=== PATIENT | female | born 2000 | race Caucasian/White ===

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

== ENCOUNTER 2018-02-08 13:15 | Emergency (ER) | payer OTHER ==
[2018-02-08] MEDS ORDERED: Albuterol/Ipratropium NEB.SOL* Albuterol 2.5 MG/Ipratropium 0.5 MG 3 ML INH ONE (13:25)
[2018-02-08 13:31] VITALS: BP 132/87
--- NOTE | 2018-02-08 13:45 | UC ---
Shortness of Breath HPI - HPI Summary HPI Summary: Patient is a 17-year-old female with a history of anxiety presenting to the with shortness of breath 2 days. The shortness of breath was acute onset, has been intermittent and is lasted for 2 days. Symptoms are aggravated with nothing and alleviated with nothing. Symptoms spontaneously resolved and returned several hours later. This has been constant over 2 days. Currently on Depo-Provera, denies any travel, denies any calf pain, denies smoking history. Denies any history of DVT or PE. She is not on blood thinners. She appears very anxious on arrival. She states she has panic attacks but never caused her to have shortness of breath. She endorses some bilateral lower rib pain, which is not worse with inspiration. Denies any back pain. She denies any drug use or alcohol use. She has not been sick recently with URI, however she endorses a mild cough without production. Denies any fevers, sweats, chills. - History of Current Complaint Chief Complaint: UCRespiratory Stated Complaint: TROUBLE BREATHING Time Seen by Provider: 02/08/18 13:19 Hx Obtained From: Patient Hx Last Menstrual Period: 11/29/17 ?: No Onset/Duration: Sudden Onset Timing: Constant Current Severity: None Dyspnea At: Rest Aggrevating Factors: Nothing Alleviating Factors: Nothing Associated Signs & Symptoms: Positive: Cough (Nonproductive). Negative: Wheezing, Nasal Congestion, Dizzy, Calf Pain/Swelling - Risk Factors Pulmonary Embolism: Oral Contraceptives Cardiac: Negative Pseudomonas: Negative Tuberculosis: Negative - Allergy/Home Medications Allergies/Adverse Reactions: Allergies Allergy/AdvReac Type Severity Reaction Status Date / Time No Known Allergies Allergy Verified 02/08/18 13:25 PMH/Surg Hx/FS Hx/Imm Hx Previously Healthy: Yes - Surgical History Surgical History: Yes Surgery Procedure, Year, and Place: adenoids - Family History Known Family History: Positive: Hypertension, Other - maternal grandmother colon & ovarian cancer. Mother uterine fibroid. Negative: Diabetes - Social History Occupation: Unemployed, Student Lives: With Family Alcohol Use: None Substance Use Type: Marijuana Substance Use Comment - Amount & Last Used: 2 x weekly Smoking Status (MU): Never Smoked Tobacco - Immunization History Most Recent Influenza Vaccination: Not UTD Vaccination Up to Date: Yes Review of Systems Constitutional: Negative Skin: Negative Respiratory: Shortness Of Breath, Cough Cardiovascular: Negative Neurovascular: Negative Musculoskeletal: Negative Neurological: Negative Psychological: Anxious Is Patient Immunocompromised?: No All Other Systems Reviewed And Are Negative: Yes Physical Exam Triage Information Reviewed: Yes Appearance: Well-Appearing, No Pain Distress, Well-Nourished Vital Signs: Initial Vital Signs Temp 98.2 F 02/08/18 13:18 Pulse 112 02/08/18 13:18 Resp 18 02/08/18 13:18 BP 132/87 02/08/18 13:18 Pulse Ox 97 02/08/18 13:18 Vital Signs Reviewed: Yes Eye Exam: Normal Respiratory Exam: Normal Respiratory: Positive: Chest non-tender, Lungs clear. Negative: Wheezing, Expiration, Inspiration Cardiovascular Exam: Normal Cardiovascular: Positive: RRR Musculoskeletal Exam: Normal Musculoskeletal: Positive: Strength Intact Neurological Exam: Normal Neurological: Positive: Alert Psychological: Positive: Normal Response To Family Skin Exam: Normal Shortness of Breath Dx - Course Course Of Treatment: Patient is evaluated for shortness of breath. Symptoms have been present 2 days, are aggravated by nothing and alleviated with nothing. She states they spontaneously resolve on their own. She endorses Depo -Provera as control, denies smoking, denies travel, denies any calf pain. She appears extremely anxious on arrival and is tachy at 112. On arrival she is given a DuoNeb. Lungs are CTA, RRR. I am unable to rule out a PE or other pathology while in the . She will be sent to the ED for further evaluation. Discussed with DELIA Kimball at 1:30 PM. Patient is refusing ambulance and will then go by private car. - Differential Dx/Diagnosis Differential Diagnosis/HQI/PQRI: Bronchitis, Chest Wall Pain, Pulmonary Embolism , Other - anxiety Provider Diagnoses: Shortness of breath Discharge - Sign-Out/Discharge Documenting (check all that apply): Discharge/Admit/Transfer - Discharge Plan Condition: Stable Disposition: HOME Patient Education Materials: Shortness of Breath (ED) Referrals: Davidson Patel MD [Primary Care Provider] - Additional Instructions: Go directly to the ED - Billing Disposition and Condition Condition: STABLE Disposition: HOME
== END 2018-02-08 13:49 | disposition home or self-care (01) ==
LOC: UCEAST 13:15
DX: R06.02 Shortness of breath (principal); R05 Cough; F41.0 Panic disorder [episodic paroxysmal anxiety]; R07.81 Pleurodynia
CPT/HCPCS: 99212; A9270-GY; G0463

== ENCOUNTER 2018-02-08 14:04 | Emergency (ER) | payer OTHER ==
[2018-02-08 15:22] LABS: ABS Basophils 0 10^3/ul (0-0.2); ABS Eosinophils 0.1 10^3/ul (0-0.6); ABS Lymphocytes 1.9 10^3/ul (1.0-4.8); ABS Monocytes 0.7 10^3/ul (0-0.8); ABS Neutrophils 3.4 10^3/ul (1.5-7.7); ABS Nucleated RBC 0 10^3/ul; Eosinophil % 1.6 % (0-6); Hematocrit 39 % (35-47); Hemoglobin 13.1 g/dl (12.0-16.0); Lymphocyte % 30.7 % (25-47); Mean Corpuscular HGB Conc 34 g/dl (31-36); Mean Corpuscular Hemoglobin 27 pg (27-31); Mean Corpuscular Volume 80 fL (80-97); Nucleated Red Blood Cells % 0.1; Platelet Count 231 10^3/ul (150-450); Red Blood Count 4.81 10^6/ul (4.0-5.4); Red Cell Distribution Width 14 % (10.5-15)
--- NOTE | 2018-02-08 15:38 | RAD ---
Indication: Shortness of breath. 2 views of the chest including dual energy PA views demonstrates no mediastinal shift. Heart is of normal size and configuration. Lung gilbert are clear. Overall no changes noted since August 13, 2016. IMPRESSION: No active cardiopulmonary disease is noted.
[2018-02-08 15:59] LABS: EGFR Non-African American 102.7 (>60)
[2018-02-08 16:49] VITALS: BP 105/88
[2018-02-08] MEDS ORDERED: Albuterol HFA INHALER* 8 gm MDI INH ONE (17:09)
--- NOTE | 2018-02-08 18:10 | ED ---
Presley Fitch Gabriel, scribed for Abhijeet Flores MD on 02/08/18 at 1431 . Shortness of Breath - HPI Summary HPI Summary: This patient is a 17 year old F presenting to [facility] with a chief complaint of SOB that began 3 days ago. Pt had a panic attack at work that triggered the SOB since then she feels like she cant inhale enough air. The patient rates the pain 0/10 in severity. Patient denies cough, pain, and tingling in her UEs. Pt was seen [facility] and was sent her to r/o PE. No hx asthma. - History of Current Complaint Chief Complaint: EDShortnessOfBreath Time Seen by Provider: 02/08/18 14:20 Hx Obtained From: Patient Onset/Duration: Lasting Weeks - 3, Still Present Timing: Constant Current Severity: Moderate Dyspnea At: Rest Associated Signs & Symptoms: Negative - cough, pain, and tingling in her UE's - Allergy/Home Medications Allergies/Adverse Reactions: Allergies Allergy/AdvReac Type Severity Reaction Status Date / Time No Known Allergies Allergy Verified 02/08/18 13:25 PMH/Surg Hx/FS Hx/Imm Hx Endocrine/Hematology History: Denies: Hx Diabetes, Hx Thyroid Disease Cardiovascular History: Denies: Hx Hypertension Respiratory History: Denies: Hx Asthma, Hx Chronic Obstructive Pulmonary Disease (COPD) GI History: Denies: Hx Ulcer History: Denies: Hx Dialysis, Hx Renal Disease Psychiatric History: Reports: Hx Anxiety - Surgical History Surgery Procedure, Year, and Place: adenoids - Immunization History Date of Tetanus Vaccine: utd Date of Influenza Vaccine: none Infectious Disease History: No Infectious Disease History: Denies: Hx Clostridium Difficile, Hx Hepatitis, Hx Human Immunodeficiency Virus (HIV), Hx of Known/Suspected MRSA, Hx Shingles, Hx Tuberculosis, Hx Known/ Suspected VRE, Hx Known/Suspected VRSA, History Other Infectious Disease, Traveled Outside the [place] in Last 30 Days - Family History Known Family History: Positive: Hypertension, Other - maternal grandmother colon & ovarian cancer. Mother uterine fibroid. Negative: Diabetes - Social History Alcohol Use: None Hx Substance Use: Yes Substance Use Type: Reports: Marijuana Substance Use Comment - Amount & Last Used: 2 x weekly Hx Tobacco Use: No Smoking Status (MU): Never Smoked Tobacco Review of Systems Positive: Shortness Of Breath. Negative: Cough Musculoskeletal: Negative - Pain Negative: Paresthesia All Other Systems Reviewed And Are Negative: Yes Physical Exam - Summary Physical Exam Summary: Appearance: The patient is well-nourished in no acute distress and in no acute pain. Skin: The skin is warm and dry and skin color reflects adequate perfusion. HEENT: The head is normocephalic and atraumatic. The pupils are equal and reactive. The conjunctivae are clear and without drainage. Nares are patent and without drainage. Mouth reveals moist mucous membranes and the throat is without erythema and exudate. The external ears are intact. The ear canals are patent and without drainage. The tympanic membranes are intact. Neck: the neck is supple with full range of motion and non-tender. There are no carotid bruits. There is no neck vein distension. Respiratory: Chest is non-tender. Tachypnea Cardiovascular: Heart is regular rate and rhythm. There is no murmur or rub auscultated. There is no peripheral edema and pulses are symmetrical and equal. Abdomen: The abdomen is soft and non-tender. There are normal bowel sounds heard in all four quadrants and there is no organomegaly palpated. Musculoskeletal: There is no back tenderness noted. Extremities are non-tender with full range of motion. There is good capillary refill. There is no peripheral edema or calf tenderness elicited. Neurological: Patient is alert and oriented to person, place and time. The patient has symmetrical motor strength in all four extremities. Cranial nerves are grossly intact. Deep tendon reflexes are symmetrical and equal in all four extremities. Psychiatric: The patient has an appropriate affect and does not exhibit any anxiety or depression. Triage Information Reviewed: Yes Vital Signs On Initial Exam: Initial Vitals Temp Pulse Resp BP Pulse Ox 97.8 F 107 24 112/85 99 02/08/18 14:08 02/08/18 14:08 02/08/18 14:08 02/08/18 14:08 02/08/18 14:08 Vital Signs Reviewed: Yes Diagnostics - Vital Signs Vital Signs Temp Pulse Resp BP Pulse Ox 02/08/18 14:08 97.8 F 107 24 112/85 99 - Laboratory Lab Results: Lab Results 02/08/18 02/08/18 02/08/18 Range/Units 15:04 15:04 15:04 WBC 6.0 (3.5-10.8) 10^3/ul RBC 4.81 (4.0-5.4) 10^6/ul Hgb 13.1 (12.0-16.0) g/dl Hct 39 (35-47) % MCV 80 (80-97) fL MCH 27 (27-31) pg MCHC 34 (31-36) g/dl RDW 14 (10.5-15) % Plt Count 231 (150-450) 10^3/ul MPV 7.0 L (7.4-10.4) um3 Neut % (Auto) 55.9 (38-83) % Lymph % (Auto) 30.7 (25-47) % [place] % (Auto) 11.1 H (0-7) % Eos % (Auto) 1.6 (0-6) % Baso % (Auto) 0.7 (0-2) % Absolute Neuts (auto) 3.4 (1.5-7.7) 10^3/ul Absolute Lymphs (auto) 1.9 (1.0-4.8) 10^3/ul Absolute Monos (auto) 0.7 (0-0.8) 10^3/ul Absolute Eos (auto) 0.1 (0-0.6) 10^3/ul Absolute Basos (auto) 0 (0-0.2) 10^3/ul Absolute Nucleated RBC 0 10^3/ul Nucleated RBC % 0.1 D-Dimer, Quantitative < 200 (Less Than 230) ng/mL Sodium 141 (139-145) mmol/L Potassium 3.4 L (3.5-5.0) mmol/L Chloride 110 (101-111) mmol/L Carbon Dioxide 23 (22-32) mmol/L Anion Gap 8 (2-11) mmol/L BUN 10 (6-24) mg/dL Creatinine 0.73 (0.51-0.95) mg/dL Est GFR ( Amer) 132.1 (>60) Est GFR (Non-Af Amer) 102.7 (>60) BUN/Creatinine Ratio 13.7 (8-20) Glucose 80 (70-100) mg/dL Lactic Acid (0.5-2.0) mmol/L Calcium 9.2 (8.6-10.3) mg/dL Total Bilirubin 0.30 (0.2-1.0) mg/dL AST 15 (13-39) U/L ALT 14 (7-52) U/L Alkaline Phosphatase 79 (34-104) U/L Troponin I 0.01 (<0.04) ng/mL C-Reactive Protein 1.29 (< 5.00) mg/L Total Protein 6.9 (6.4-8.9) g/dL Albumin 4.3 (3.2-5.2) g/dL Globulin 2.6 (2-4) g/dL Albumin/Globulin Ratio 1.7 (1-3) Beta HCG, Quant 0.74 mIU/mL 02/08/18 Range/Units 15:04 WBC (3.5-10.8) 10^3/ul RBC (4.0-5.4) 10^6/ul Hgb (12.0-16.0) g/dl Hct (35-47) % MCV (80-97) fL MCH (27-31) pg MCHC (31-36) g/dl RDW (10.5-15) % Plt Count (150-450) 10^3/ul MPV (7.4-10.4) um3 Neut % (Auto) (38-83) % Lymph % (Auto) (25-47) % [place] % (Auto) (0-7) % Eos % (Auto) (0-6) % Baso % (Auto) (0-2) % Absolute Neuts (auto) (1.5-7.7) 10^3/ul Absolute Lymphs (auto) (1.0-4.8) 10^3/ul Absolute Monos (auto) (0-0.8) 10^3/ul Absolute Eos (auto) (0-0.6) 10^3/ul Absolute Basos (auto) (0-0.2) 10^3/ul Absolute Nucleated RBC 10^3/ul Nucleated RBC % D-Dimer, Quantitative (Less Than 230) ng/mL Sodium (139-145) mmol/L Potassium (3.5-5.0) mmol/L Chloride (101-111) mmol/L Carbon Dioxide (22-32) mmol/L Anion Gap (2-11) mmol/L BUN (6-24) mg/dL Creatinine (0.51-0.95) mg/dL Est GFR ( Amer) (>60) Est GFR (Non-Af Amer) (>60) BUN/Creatinine Ratio (8-20) Glucose (70-100) mg/dL Lactic Acid 1.4 (0.5-2.0) mmol/L Calcium (8.6-10.3) mg/dL Total Bilirubin (0.2-1.0) mg/dL AST (13-39) U/L ALT (7-52) U/L Alkaline Phosphatase (34-104) U/L Troponin I (<0.04) ng/mL C-Reactive Protein (< 5.00) mg/L Total Protein (6.4-8.9) g/dL Albumin (3.2-5.2) g/dL Globulin (2-4) g/dL Albumin/Globulin Ratio (1-3) Beta HCG, Quant mIU/mL Result Diagrams: 02/08/18 15:04 02/08/18 15:04 Lab Statement: Any lab studies that have been ordered have been reviewed, and results considered in the medical decision making process. - Radiology CXR Radiology Interpretation Completed By: Radiologist - No active cardiopulmonary disease is noted. ED physician has reviewed this radiology report. Course/Dx - Course Course Of Treatment: Ms. Munoz was sent over from the [facility] for shortness of breath. On arrival she looked anxious and her lungs were clear to auscultation. Blood was drawn and a d-dimer was checked and was negative. On presentation she had a very dramatic pattern of breathing which she would reassume when I entered the room however was not performing apparently when I was not in the room. At discharge she requested an inhaler and I'm willing to give it to her however I think most of her problem is anxiety. - Diagnoses Provider Diagnoses: Dyspnea Discharge - Sign-Out/Discharge Documenting (check all that apply): Discharge/Admit/Transfer - Discharge Plan Condition: Stable Disposition: HOME Patient Education Materials: Dyspnea (ED) Referrals: Davidson Patel MD [Primary Care Provider] - 3 Days Additional Instructions: RETURN TO THE EMERGENCY DEPARTMENT FOR CHANGING OR WORSENING SYMPTOMS - Billing Disposition and Condition Condition: STABLE Disposition: HOME The documentation as recorded by the Presley ervin Gabriel accurately reflects the service I personally performed and the decisions made by me, Abhijeet Flores MD.
== END 2018-02-08 17:13 | disposition home or self-care (01) ==
LOC: ED 14:04
DX: R06.00 Dyspnea, unspecified (principal)
CPT/HCPCS: 36415; 71046; 80053; 83605; 84484; 84702; 85025; 85379; 86140; 99283; A9270-GY

== ENCOUNTER 2018-08-28 11:08 | Emergency (ER) | payer OTHER ==
[2018-08-28 12:23] VITALS: BP 115/64
--- NOTE | 2018-08-28 13:24 | UC ---
Elbow Pain - HPI Summary HPI Summary: 18 y/o female presents to the urgent care c/o Rt elbow pain radiating to the medial aspect of forearm for the past 4 days. 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 Pt states she woke up and she noticed pain specially on extension. pain has increase w/ time, sharp and burning at times 5/10. She has not taking any medications to alleviate symptoms. she has also noticed a tingling sensation at times over the medial aspect of her forearm. Pt denies previous injury, SOB, chest pain, swelling, abdominal pain, N/v/D. - History of Current Complaint Chief Complaint: UCUpperExtremity Stated Complaint: ELBOW TO WRIST PAIN Time Seen by Provider: 08/28/18 13:08 Hx Obtained From: Patient Hx Last Menstrual Period: no periods ?: No - pt declines pregnacy test since she take OCP Onset/Duration: Days - 4 days Severity Initially: Mild Severity Currently: Moderate Pain Intensity: 5 Pain Scale Used: 0-10 Numeric Location Of Pain: Is Discrete @ - medial side of Rt elbow, Radiates To - Rt forearm Character: Sharp - w/ movement, Burning - at times Aggravating Factor(s): Movement Alleviating Factor(s): Rest Associated Signs And Symptoms: Positive: Numbness/Tingling - at times. Negative : Swelling, Bruising, Fever, Weakness - Allergies/Home Medications Allergies/Adverse Reactions: Allergies Allergy/AdvReac Type Severity Reaction Status Date / Time No Known Allergies Allergy Verified 08/28/18 12:16 Home Medications: Home Medications Sertraline* [Zoloft*] 25 mg PO DAILY 08/28/18 [History Confirmed 08/28/18] PMH/Surg Hx/FS Hx/Imm Hx Previously Healthy: Yes - Pt denies PMHX - Surgical History Surgical History: Yes Surgery Procedure, Year, and Place: adenoids - Family History Known Family History: Positive: Hypertension, Other - maternal grandmother colon & ovarian cancer. Mother uterine fibroid. Negative: Diabetes - Social History Occupation: Employed Full-time Lives: With Family Alcohol Use: None Substance Use Type: None Substance Use Comment - Amount & Last Used: 2 x weekly Smoking Status (MU): Never Smoked Tobacco - Immunization History Most Recent Influenza Vaccination: Not UTD Vaccination Up to Date: Yes Review of Systems All Other Systems Reviewed And Are Negative: Yes Constitutional: Positive: Negative Skin: Positive: Negative Eyes: Positive: Negative ENT: Positive: Negative Respiratory: Positive: Negative Cardiovascular: Positive: Negative Gastrointestinal: Positive: Negative Genitourinary: Positive: Negative Motor: Positive: Negative Neurovascular: Positive: Negative Musculoskeletal: Positive: Decreased ROM - Rt elbow, Other: - Rt elbow pain Neurological: Positive: Numbness - at times over the Rt forearm Psychological: Positive: Negative Is Patient Immunocompromised?: No Physical Exam - Summary Physical Exam Summary: Vital Signs Reviewed: Yes GENERAL: Well-Appearing, No Pain Distress, Well-Nourished - female sitting comfortably in the examining table Eyes: Positive: Conjunctiva Clear - PERRL,EOMI ENT: Positive: Normal ENT inspection, Hearing grossly normal, Pharyngeal erythema - mild, Nasal drainage - clear, Uvula midline Neck: Positive: Supple, Nontender, No Lymphadenopathy Respiratory: Positive: Chest non-tender, Lungs clear, Normal breath sounds, No respiratory distress Cardiovascular: Positive: RRR, No Murmur, Pulses Normal, Brisk Capillary Refill Abdomen Description: Positive: Nontender, No Organomegaly, Soft. Negative: CVA Tenderness (R), CVA Tenderness (L) Bowel Sounds: Positive: Present Musculoskeletal: Positive: Strength Intact, Rt Elbow: The R elbow is without obvious asymmetry or deformity when compared to the L elbow. No obvious surface trauma, ecchymosis, or soft tissue swelling. Point tenderness to palpation of the medial epicondyle, , No point tenderness over the lateral epicondyles, or olecranon, or radial head. Tenderness to palpation ove the proximal medail aspect of the forearm. No epicondylar or axillary lymphadenopathy. Decreased ROM due to pain. Normal muscle strength. Intact motor and sensation of ulnar, median, and radial nerves. Neurological Exam: Normal Psychological Exam: Normal Skin Exam: Normal Triage Information Reviewed: Yes Vital Signs: Initial Vital Signs Temp 97.9 F 08/28/18 12:18 Pulse 80 08/28/18 12:18 Resp 18 08/28/18 12:18 BP 115/64 08/28/18 12:18 Pulse Ox 100 08/28/18 12:18 Elbow Pain Course/Dx - Course Course Of Treatment: 18 y/o female presents to the urgent care c/o Rt elbow pain radiating to the medial aspect of forearm for the past 4 days. 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 Pt states she woke up and she noticed pain specially on extension. pain has increase w/ time, sharp and burning at times 5/ 10. She has not taking any medications to alleviate symptoms. she has also noticed a tingling sensation at times over the medial aspect of her forearm. Pt denies previous injury, SOB, chest pain, swelling, abdominal pain, N/v/D. Hx obtained. RT elbow X-ray ordered: impression: no fracture or osseous injury noted. Pt given a shoulder sling to keep elbow immobilized. Pt Rx ibuprofen PO as directed below. Advised to f/u with Orthopedic DR from Sport medicine referral if not improvement of symptoms in 1 week. Pt also given Physical therapy referral. Pt understood and agreed with D/C instructions. - Differential Dx/Diagnosis Differential Diagnosis/HQI/PQRI: Bursitis, Fracture (Closed), Infection, Sprain , Strain, Tendonitis Provider Diagnosis: Right elbow tendinitis, Right elbow pain Discharge - Sign-Out/Discharge Documenting (check all that apply): Patient Departure - d/c home All imaging exams completed and their final reports reviewed: Yes - Discharge Plan Condition: Stable Disposition: HOME Prescriptions: Ibuprofen TAB* [Motrin TAB* 600 MG] 600 mg PO Q6H PRN #30 tab PRN Reason: Pain Patient Education Materials: Tennis Elbow (ED) Forms: *Work Release Referrals: [facility] [Provider Group] - 1 Week Davidson Patel MD [Primary Care Provider] - 1 Week Additional Instructions: 1-[place] Ibuprofen PO after measl directed to alleviate pain and swelling. Increase fluid intake , eat well and rest. 2-Please apply ice, keep your Rt elbow immobilized with the sling for 3-4 days then regain movement 3- Please f/u with Orthopedic from Sports Medicine or your PCP in 1 week is not improvement of symptoms for further evaluation and treatment. 4- F/u w/ Physical therapy referral for further evaluation and management. - Billing Disposition and Condition Condition: STABLE Disposition: Home
== END 2018-08-28 14:06 | disposition home or self-care (01) ==
LOC: UCEAST 11:08
DX: M77.9 Enthesopathy, unspecified (principal)
CPT/HCPCS: 99213; G0463